=== PATIENT | male | born 1985 | race Caucasian/White ===

== ENCOUNTER 2024-06-20 01:45 | Inpatient (IN) | payer OTHER ==
[~2024-06-20] VITALS: Ht 175.3 cm; Wt 68.7 kg
[2024-06-20] MEDS: INSULIN HUMULIN R 100 UNIT/ML 3ML SQ ONE (03:32)
[2024-06-20 03:41] LABS: BASOPHILS # (AUTO) 0.04 K/uL (0.00-0.20); BASOPHILS % (AUTO) 0.2 % (0.0-5.0); EOSINOPHILS # (AUTO) 7.42 K/uL (0.00-0.70); EOSINOPHILS % (AUTO) 34.1 % (0.0-8.0); HEMATOCRIT 40.8 % (42-54); IMMATURE GRANULOCYTE ABSOLUTE 0.17 K/uL (0-1); LYMPHOCYTES # (AUTO) 1.6 K/uL (1.0-4.8); LYMPHOCYTES % (AUTO) 7.4 % (21.0-51.0); MEAN CORPUSCULAR HEMOGLOBIN 30.4 pg (27.0-33.0); MEAN CORPUSCULAR HGB CONC 33.3 g/dL (32.0-36.0); MEAN CORPUSCULAR VOLUME 91.3 fL (79-99); MONOCYTES # (AUTO) 2.4 K/uL (0.1-1.0); MONOCYTES % (AUTO) 10.9 % (3.0-13.0); NEUTROPHILS # (AUTO) 10.1 K/uL (1.8-7.7); NEUTROPHILS % (AUTO) 46.6 % (40.0-77.0); PLATELET COUNT (AUTO) 299 K/uL (130-400); RED BLOOD CELL COUNT(AUTO) 4.47 MIL/uL (4.50-6.20); RED CELL DISTRIBUTION WIDTH 11.9 % (11.0-15.5); WHITE BLOOD COUNT (AUTO) 21.8 K/uL (4.8-10.8)
[2024-06-20] MEDS: D5W-1/2 NS/20MEQ KCL 1,000 ML IV SCH (03:48)
[2024-06-20] MEDS: MAGNESIUM 2GM PREMIX 50ML 50 ML IV SCH (03:49)
[2024-06-20] MEDS ORDERED: POTASSIUM CHLORIDE 10MEQ/100ML 100 ML IV PRN ×2 (04:00→05:00)
[2024-06-20] MEDS ORDERED: MANNITOL 20% 250ML IV.SOLN IV SCH (04:00)
[2024-06-20] MEDS ORDERED: INSULIN REGULAR, HUMAN 3ML 100 UNIT in 0.9%NACL 100ML 99 ML IV PRN (04:00)
[2024-06-20] MEDS ORDERED: 0.9%NACL 1000ML 1,000 ML IV SCH ×2 (04:00→08:30)
[2024-06-20 04:03] LABS: ALANINE AMINOTRANSFERASE 42 U/L (12-78); ALBUMIN 4.4 g/dL (3.5-5.0); ASPARTATE AMINOTRANSFERASE 18 U/L (10-37); BILIRUBIN,TOTAL 0.6 mg/dL (0.2-1.0); CHLORIDE 99 mmol/L (101-111); CREATININE 2.1 mg/dL (0.5-1.3); GLOMERULAR FILTR. RATE CALC 41 mL/min (>90); SODIUM SERUM 138 mmol/L (136-145); TOTAL PROTEIN, SERUM 7.6 g/dL (6.0-8.3); UREA NITROGEN, BLOOD 34 mg/dL (7-18)
[2024-06-20 04:13] LABS: WBC MORPHOLOGY SLIDE REVIEWED
[2024-06-20 04:25] LABS: CARBON DIOXIDE < 5 mmol/L (21-32)
[2024-06-20 04:26] LABS: GLUCOSE,RANDOM 764 mg/dL (70-105); POTASSIUM 6.1 mmol/L (3.5-5.1)
[2024-06-20] MEDS: SODIUM BICARB 50MEQ 50ML VIAL IV ONE (04:43)
[2024-06-20] MEDS: LACTATED RINGERS 1000ML 1,000 ML IV ONE (04:56)
[2024-06-20] MEDS ORDERED: D5W-1/2 NS/20MEQ KCL 1,000 ML IV SCH (05:00)
[2024-06-20] MEDS: ONDANSETRON 4MG INJ IVP ONE (05:00)
[2024-06-20] MEDS ORDERED: INSULIN REGULAR, HUMAN 3ML 100 UNIT in 0.9%NACL 100ML 100 ML IV SCH (05:00)
[2024-06-20] MEDS: LACTATED RINGERS IV ONE (05:00)
[2024-06-20] MEDS: ALBUTEROL 0.083% 2.5 MG/3 ML INH IH ONE ×2 (05:09→05:15)
[2024-06-20 05:16] VITALS: PULSE 122; RESP 18
[2024-06-20] MEDS: NA ZIRCON CYCLOSIL(LOKELMA 10GM) PO ONE (05:23)
[2024-06-20] MEDS ORDERED: hydrALAZine 20MG/ML VIAL IV PRN (06:00)
[2024-06-20] MEDS ORDERED: LACTULOSE 20 GM/30 ML UDCUP PO PRN (06:00)
[2024-06-20] MEDS ORDERED: DOCUSATE SODIUM 100 MG CAP PO PRN (06:00)
[2024-06-20] MEDS ORDERED: acetaMINOPHEN 650 MG SUPPOSITORY RC PRN (06:00)
[2024-06-20] MEDS ORDERED: TEMAZEPAM 15 MG CAPSULE PO PRN (06:00)
[2024-06-20 06:19] LABS: ADD UA MICROSCOPIC YES; APPEARANCE,URINE CLEAR (CLEAR); BACTERIA,URINE RARE /HPF (None Seen); BILIRUBIN,URINE NEGATIVE (NEGATIVE); COLOR,URINE COLORLESS (YELLOW); GLUCOSE, URINE (UA) >=1000 mg/dL (NEGATIVE); KETONES,URINE 150 mg/dL (NEGATIVE); LEUKOCYTE ESTERASE ,URINE NEGATIVE Leu/uL (NEGATIVE); MUCUS,URINE RARE LPF (None Seen); NITRATE,URINE NEGATIVE (NEGATIVE); OCCULT BLOOD,URINE SMALL (NEGATIVE); PROTEIN,URINE 20 mg/dL (NEGATIVE); RBC,URINE 0-1 /HPF (0-1); UROBILINOGEN,URINE 0.2 mg/dL (0.2-1.0); WBC,URINE 0-1 /HPF (0-1)
[2024-06-20] MEDS: INSULIN REGULAR, HUMAN 3ML 100 UNIT in 0.9%NACL 100ML 100 ML IV SCH (06:21)
[2024-06-20] MEDS: 0.9%NACL 1000ML 1,000 ML IV SCH ×2 (07:47→08:38)
[2024-06-20 08:04] LABS: ABG BASE EXCESS -18.3 mmol/L (-2.0-3.0); ABG HCO3 6.9 mmol/L (21.0-28.0); ABG OXYGEN SATURATION 97.9 % (95.0-99.0); ABG PCO2 17 mmHg (35-48); ABG PH 7.229 (7.350-7.450); CARBON MONOXIDE 0.3; HHb 2.1; PO2, ARTERIAL BG 115.3 mmHg (83.0-108.0); VENT MODE, BG RA (ROOM AIR)
[2024-06-20 08:18] LABS: CREATININE,URINE RANDOM 33.24 mg/dL (30-135)
[2024-06-20 08:52] LABS: CREATININE 1.7 mg/dL (0.5-1.3); POTASSIUM 3.9 mmol/L (3.5-5.1)
[2024-06-20] MEDS: NS-20 MEQ KCL 1000ML 1,000 ML IV SCH (09:07)
[2024-06-20] MEDS: CEFTRIAXONE 2GM VIAL IVPB SCH (09:19)
[2024-06-20] MEDS: ENOXAPARIN SODIUM 40 MG/0.4 ML SYRINGE SQ SCH (09:20)
[2024-06-20] MEDS: NS-20 MEQ KCL 1000ML 1,000 ML IV ONE (09:21)
[2024-06-20] MEDS: PANTOPRAZOLE 40 MG/VIAL IVP SCH (09:22)
[2024-06-20] MEDS: INSULIN GLARGINE 100 UNITS/ML 10 ML VIAL SQ SCH (09:33)
[2024-06-20] MEDS: DOXYCYCLINE 100MG+NS 250ML 250 ML IV SCH (09:49)
[2024-06-20 10:18] LABS: AMPHET/METH SCREEN,URINE NEGATIVE (NEGATIVE); BARBITURATE SCREEN, URINE NEGATIVE (NEGATIVE); BENZODIAZEPINES SCREEN,URINE NEGATIVE (NEGATIVE); CANNABINOID SCREEN,URINE NEGATIVE (NEGATIVE); COCAINE SCREEN,URINE NEGATIVE (NEGATIVE); OPIATE SCREEN,URINE NEGATIVE (NEGATIVE); PHENCYCLIDINE SCREEN,URINE NEGATIVE (NEGATIVE)
[2024-06-20 11:16] LABS: COVID19 (SARS ANTIGEN RAPID) PRESUMPTIVE NEGATIVE (NEGATIVE); INFLUENZA TYPE A Negative For Type A (NEGATIVE); INFLUENZA TYPE B Negative For Type B (NEGATIVE)
[2024-06-20 12:20] LABS: CREATININE 1.5 mg/dL (0.5-1.3); POTASSIUM 4.6 mmol/L (3.5-5.1)
[2024-06-20] MEDS ORDERED: INSU100V12 SQ (12:52)
[2024-06-20 16:12] LABS: CREATININE 1.6 mg/dL (0.5-1.3); POTASSIUM 4.7 mmol/L (3.5-5.1)
[2024-06-20 20:14] LABS: CREATININE 1.1 mg/dL (0.5-1.3)
[2024-06-20 20:16] LABS: POTASSIUM 8.1 mmol/L (3.5-5.1)
[2024-06-20] MEDS ORDERED: INSULIN GLARGINE 100 UNITS/ML 10 ML VIAL SQ SCH (21:00)
[2024-06-20 21:09] LABS: CREATININE 1.4 mg/dL (0.5-1.3); MAGNESIUM 1.9 mg/dL (1.80-2.40); POTASSIUM 4.5 mmol/L (3.5-5.1)
[2024-06-21] VITALS (48 sets, daily range): BP systolic 79–149; BP diastolic 37–80; PULSE 91–126; RESP 9–20; O2SAT 97–99
[2024-06-21 00:33] LABS: CREATININE 1.4 mg/dL (0.5-1.3); POTASSIUM 4.2 mmol/L (3.5-5.1)
[2024-06-21] MEDS: 0.9%NACL 1000ML 1,000 ML IV ONE (00:52)
[2024-06-21] MEDS: KETOROLAC 30MG VIAL (30MG/ML) IVP ONE (00:54)
[2024-06-21 02:33] LABS: ABG BASE EXCESS -17.5 mmol/L (-2.0-3.0); ABG HCO3 8.9 mmol/L (21.0-28.0); ABG OXYGEN SATURATION 96.9 % (95.0-99.0); ABG PCO2 24 mmHg (35-48); ABG PH 7.185 (7.350-7.450); VENT MODE, BG RA (ROOM AIR)
[2024-06-21] MEDS: SODIUM BICARB 50MEQ 50ML VIAL 100 ML ONE (03:15)
[2024-06-21] MEDS: SODIUM BICARB 50MEQ 50ML VIAL IV ONE (03:15)
[2024-06-21 03:44] LABS: HEMATOCRIT 35.1 % (42-54); MEAN CORPUSCULAR HEMOGLOBIN 30.6 pg (27.0-33.0); MEAN CORPUSCULAR HGB CONC 33.3 g/dL (32.0-36.0); MEAN CORPUSCULAR VOLUME 91.9 fL (79-99); RED BLOOD CELL COUNT(AUTO) 3.82 MIL/uL (4.50-6.20); RED CELL DISTRIBUTION WIDTH 12.7 % (11.0-15.5); WHITE BLOOD COUNT (AUTO) 9.7 K/uL (4.8-10.8)
[2024-06-21 04:04] LABS: CREATININE 1.3 mg/dL (0.5-1.3); MAGNESIUM 1.9 mg/dL (1.80-2.40); PHOSPHORUS 1.2 mg/dL (2.5-4.9); POTASSIUM 3.4 mmol/L (3.5-5.1); THYROID STIMULATING HORMONE 0.41 uIU/mL (0.36-3.74)
[2024-06-21 07:54] LABS: ABG OXYGEN SATURATION 89.3 % (95.0-99.0); BASE EXCESS,VENOUS BLOOD GAS -6.8 (-2.0-3.0); DEVICE COMMENT RN SYLVIA; HCO3,VENOUS BLOOD GAS 18.1 (21.0-28.0); PCO2,VENOUS BLOOD GAS 35 (32-45); PH,VENOUS BLOOD GAS 7.337 (7.350-7.450); VENT MODE, BG RA (ROOM AIR)
[2024-06-21] MEDS ORDERED: POTASSIUM PHOSPHATE 0 MMOL in 0.9% NACL 250ML 250 ML IV SCH (08:30)
[2024-06-21 08:32] LABS: CREATININE 1.2 mg/dL (0.5-1.3)
[2024-06-21] MEDS: LACTATED RINGERS 1000ML IV SCH (08:58)
[2024-06-21] MEDS: INSULIN GLARGINE 100 UNITS/ML 10 ML VIAL SQ SCH (08:58)
[2024-06-21] MEDS: POTASSIUM PHOS 15 mMOL+NS250ML 250 ML IV PRN (09:20)
[2024-06-21 11:40] LABS: CREATININE 1.1 mg/dL (0.5-1.3); MAGNESIUM 1.7 mg/dL (1.80-2.40); POTASSIUM 3.1 mmol/L (3.5-5.1)
[2024-06-21] MEDS: POTASSIUM CHLORIDE 10MEQ/100ML IV PRN (12:29)
[2024-06-21] MEDS: MAGNESIUM 2GM PREMIX 50ML 50 ML IV SCH (12:31)
[2024-06-21] MEDS: D5W-1/2 NS/20MEQ KCL 1,000 ML IV SCH (13:10)
[2024-06-21] MEDS: acetaMINOPHEN 325 MG TAB PO PRN (13:43)
[2024-06-21 18:42] LABS: POTASSIUM 3.6 mmol/L (3.5-5.1)
[2024-06-21] MEDS: LACTATED RINGERS 1000ML 1,000 ML IV SCH (20:58)
[2024-06-21] MEDS ORDERED: INSULIN GLARGINE 100 UNITS/ML 10 ML VIAL SQ SCH (21:00)
[2024-06-21] MEDS: BENZOCAINE/MENTH/CETYLPYRD CL 1 EACH LOZENGE MM PRN (21:14)
[2024-06-22] VITALS (18 sets, daily range): BP systolic 110–134; BP diastolic 62–81; PULSE 67–89; RESP 9–22; O2SAT 97–100
[2024-06-22 04:13] LABS: ABG OXYGEN SATURATION 73.9 % (95.0-99.0); BASE EXCESS,VENOUS BLOOD GAS -0.9 (-2.0-3.0); DEVICE COMMENT VENOUS; HCO3,VENOUS BLOOD GAS 23.8 (21.0-28.0); PCO2,VENOUS BLOOD GAS 40 (32-45); PH,VENOUS BLOOD GAS 7.395 (7.350-7.450); PO2,VENOUS BLOOD GAS 32.7 mmHg (35.0-45.0); VENT MODE, BG RN TED (ROOM AIR)
[2024-06-22 04:21] LABS: EOSINOPHILS # (AUTO) 0.01 K/uL (0.00-0.70); EOSINOPHILS % (AUTO) 0.2 % (0.0-8.0); HEMATOCRIT 28.9 % (42-54); IMMATURE GRANULOCYTE ABSOLUTE 0.03 K/uL (0-1); LYMPHOCYTES # (AUTO) 1.5 K/uL (1.0-4.8); LYMPHOCYTES % (AUTO) 23.5 % (21.0-51.0); MEAN CORPUSCULAR HEMOGLOBIN 30.2 pg (27.0-33.0); MEAN CORPUSCULAR HGB CONC 34.6 g/dL (32.0-36.0); MEAN CORPUSCULAR VOLUME 87.3 fL (79-99); MONOCYTES # (AUTO) 0.5 K/uL (0.1-1.0); MONOCYTES % (AUTO) 8.4 % (3.0-13.0); NEUTROPHILS # (AUTO) 4.4 K/uL (1.8-7.7); NEUTROPHILS % (AUTO) 67.4 % (40.0-77.0); PLATELET COUNT (AUTO) 151 K/uL (130-400); RED BLOOD CELL COUNT(AUTO) 3.31 MIL/uL (4.50-6.20); RED CELL DISTRIBUTION WIDTH 12.9 % (11.0-15.5); WHITE BLOOD COUNT (AUTO) 6.5 K/uL (4.8-10.8)
[2024-06-22 04:43] LABS: ALBUMIN 2.5 g/dL (3.5-5.0); BILIRUBIN,TOTAL 0.9 mg/dL (0.2-1.0); CREATININE 0.8 mg/dL (0.5-1.3); MAGNESIUM 1.8 mg/dL (1.80-2.40)
[2024-06-22] MEDS ORDERED: POTASSIUM PHOS 15 mMOL+NS250ML 250 ML IV PRN (09:30)
[2024-06-22] MEDS ORDERED: POTASSIUM CHLORIDE 10% ELIXIR 20 MEQ/15 ML UDCUP PO PRN (10:00)
[2024-06-22] MEDS: KCL 20 MEQ ERTAB PO PRN (10:31)
[2024-06-22] MEDS: mecliZINE HCL 25 MG TABLET PO PRN (10:32)
[2024-06-22] MEDS: SUCRALFATE 1 GM TABLET PO SCH (11:13)
[2024-06-22] MEDS: INSULIN GLARGINE 100 UNITS/ML 10 ML VIAL SQ SCH (12:27)
[2024-06-22] MEDS: ONDANSETRON 4MG INJ IVP PRN (16:35)
[2024-06-22] MEDS: POTASSIUM CHLORIDE 20MEQ/100ML 100 ML IV ONE ×2 (18:55→21:14)
[2024-06-22] MEDS ORDERED: SUCRALFATE 1 GM TABLET PO SCH (21:00)
[2024-06-23] VITALS (7 sets, daily range): BP systolic 116–134; BP diastolic 67–92; PULSE 50–72; RESP 16–19; O2SAT 100
[2024-06-23 04:49] LABS: BASOPHILS # (AUTO) 0.01 K/uL (0.00-0.20); BASOPHILS % (AUTO) 0.2 % (0.0-5.0); EOSINOPHILS # (AUTO) 0.02 K/uL (0.00-0.70); EOSINOPHILS % (AUTO) 0.4 % (0.0-8.0); HEMATOCRIT 30.2 % (42-54); IMMATURE GRANULOCYTE ABSOLUTE 0.02 K/uL (0-1); LYMPHOCYTES # (AUTO) 1.9 K/uL (1.0-4.8); MEAN CORPUSCULAR HEMOGLOBIN 30.7 pg (27.0-33.0); MEAN CORPUSCULAR HGB CONC 34.8 g/dL (32.0-36.0); MEAN CORPUSCULAR VOLUME 88.3 fL (79-99); MONOCYTES # (AUTO) 0.4 K/uL (0.1-1.0); MONOCYTES % (AUTO) 7.1 % (3.0-13.0); NEUTROPHILS % (AUTO) 56.9 % (40.0-77.0); PLATELET COUNT (AUTO) 140 K/uL (130-400); RED BLOOD CELL COUNT(AUTO) 3.42 MIL/uL (4.50-6.20); RED CELL DISTRIBUTION WIDTH 12.9 % (11.0-15.5); WHITE BLOOD COUNT (AUTO) 5.3 K/uL (4.8-10.8)
[2024-06-23 05:02] LABS: ALBUMIN 2.4 g/dL (3.5-5.0); BILIRUBIN,TOTAL 1.1 mg/dL (0.2-1.0); CREATININE 0.6 mg/dL (0.5-1.3); MAGNESIUM 1.9 mg/dL (1.80-2.40); POTASSIUM 3.3 mmol/L (3.5-5.1); TOTAL PROTEIN, SERUM 4.8 g/dL (6.0-8.3)
[2024-06-23 05:08] LABS: % IRON SATURATION 102.8 % (30-44)
[2024-06-23] MEDS: POTASSIUM CHLORIDE 20MEQ/100ML 100 ML IV PRN (12:58)
[2024-06-23] MEDS: INSULIN HUMULIN R 100 UNIT/ML 3ML SQ SCH (13:14)
[2024-06-23] MEDS: MAGNESIUM CITRATE 296 ML SOLUTION PO ONE (15:18)
[2024-06-23] MEDS: METOCLOPRAMIDE 10 MG/2 ML VIAL IVP SCH (16:51)
[2024-06-24 04:31] VITALS: BP 116/64; PULSE 71; RESP 17
[2024-06-24 05:47] LABS: BASOPHILS # (AUTO) 0.02 K/uL (0.00-0.20); BASOPHILS % (AUTO) 0.5 % (0.0-5.0); EOSINOPHILS # (AUTO) 0.07 K/uL (0.00-0.70); EOSINOPHILS % (AUTO) 1.7 % (0.0-8.0); HEMATOCRIT 30.2 % (42-54); IMMATURE GRANULOCYTE ABSOLUTE 0.01 K/uL (0-1); LYMPHOCYTES # (AUTO) 1.5 K/uL (1.0-4.8); LYMPHOCYTES % (AUTO) 36.5 % (21.0-51.0); MEAN CORPUSCULAR HEMOGLOBIN 31.1 pg (27.0-33.0); MEAN CORPUSCULAR HGB CONC 34.8 g/dL (32.0-36.0); MEAN CORPUSCULAR VOLUME 89.3 fL (79-99); MONOCYTES # (AUTO) 0.4 K/uL (0.1-1.0); MONOCYTES % (AUTO) 8.6 % (3.0-13.0); NEUTROPHILS # (AUTO) 2.1 K/uL (1.8-7.7); NEUTROPHILS % (AUTO) 52.5 % (40.0-77.0); PLATELET COUNT (AUTO) 133 K/uL (130-400); RED BLOOD CELL COUNT(AUTO) 3.38 MIL/uL (4.50-6.20); RED CELL DISTRIBUTION WIDTH 12.4 % (11.0-15.5); WHITE BLOOD COUNT (AUTO) 4.1 K/uL (4.8-10.8)
[2024-06-24 06:23] LABS: CREATININE 0.5 mg/dL (0.5-1.3)
[2024-06-24] MEDS: METOCLOPRAMIDE 10 MG/2 ML VIAL IVP SCH (06:41)
[2024-06-24 08:00] VITALS: BP 125/82; PULSE 62; RESP 14; O2SAT 100
[2024-06-24 11:59] VITALS: BP 116/76; PULSE 67; RESP 14
[2024-06-24] MEDS ORDERED: INSLAN SQ (14:33)
[2024-06-24] MEDS ORDERED: INSU100V SQ (14:33)
[2024-06-24] MEDS ORDERED: POLY17PO4 PO (14:33)
[2024-06-24] MEDS ORDERED: DOCU-116 PO (14:49)
[2024-06-24 16:00] VITALS: BP 119/83; PULSE 71; RESP 14
[2024-06-24] MEDS: KCL 20 MEQ ERTAB PO ONE (17:28)
== END 2024-06-24 19:27 | disposition home or self-care (01) | DRG 871 ==
LOC: EDH 01:45 → EDHIP 05:28 → 2CH 06-21 00:09 → 4CH 06-22 13:00
PROVIDERS: ADMIT Internal Medicine; ATTEND Internal Medicine
DX: A41.9 Sepsis, unspecified organism (principal); E11.10 Type 2 diabetes mellitus with ketoacidosis without coma; J96.01 Acute respiratory failure with hypoxia; N17.0 Acute kidney failure with tubular necrosis; D64.9 Anemia, unspecified; E87.8 Other disorders of electrolyte and fluid balance, not elsewhere classified; Z83.3 Family history of diabetes mellitus; E11.43 Type 2 diabetes mellitus with diabetic autonomic (poly)neuropathy; E87.6 Hypokalemia; Z20.822 Contact with and (suspected) exposure to COVID-19; K31.84 Gastroparesis; K59.00 Constipation, unspecified; R65.20 Severe sepsis without septic shock; Z91.199 Patient's noncompliance with other medical treatment and regimen due to unspecified reason; Z79.899 Other long term (current) drug therapy; Z79.4 Long term (current) use of insulin
CPT/HCPCS: 36415; 36600; 71045; 78264; 80048; 80053; 80305; 81001; 82010; 82435; 82570; 82607; 82746; 82803; 82947; 82948; 83036; 83540; 83550; 83605; 83690; 83735; 83930; 84100; 84132; 84145; 84295; 84300; 84443; 84484; 84540; 85018; 85025; 85027; 86341; 87040; 87426; 87804; 87880; 94640; A9541; G0378; J0696; J1650; J1815; J1885; J2405; J2470; J2765; J3475; J3480; J3490; J7030